=== PATIENT | male | born 1970 ===

== ENCOUNTER → 2023-08-05 13:29 | Outpatient (POV) | payer BC, SELFPAY ==
[2023-08-05 13:52] VITALS: BP 134/82; PULSE 70; RESP 20; O2SAT 99; BMI 29.7
--- NOTE | 2023-08-05 14:20 | EXP.PAIN.OV ---
HPI Data of Consult Patient: new to practice Consult date: 08/05/23 Requesting Physician: Tracie Holt APRN Consult Narrative Reason for consult: Low back pain, right hip pain History of present illness: Mr. Tony is a 52 year old male who presents today as a new patient. He is a referral from [facility]. Today he rates his pain a 5 out of 10. Patient states all of his issues are related to around his right hip and buttocks/upper leg. Patient states this has been going on since June 19 and related to any specific trauma or injury. He does describe this as a sharp knifelike sensation that does interfere with his ability to perform activities of daily living such as cooking and cleaning. He states it is almost like electrical shock sensations. He states the pain seems to be worse with certain positioning such as prolonged sitting, walking or standing. He states that riding in a vehicle significantly worsens his pain along with going up stairs. Patient has tried [id number] Tylenol and ibuprofen along with heat and ice and topicals such as IcyHot with no improvement. Patient has had physical therapy in the past with no change. Patient does state he does do an at home exercise regimen and stretching daily and has for the last 12 weeks with minimal improvement. Patient does also state he has a history of rotator cuff tear in his bilateral shoulders and did have right repair in the past. He does state that he is going to be scheduled for a left shoulder surgery in the future however that based off of his work routine he has to wait until most likely May. He does state that he is scheduled for a lumbar MRI coming up. Patient does have a history of previous back fusion related to scoliosis. He is currently managed with gabapentin 300 mg 3 times a day from an outside provider. Patient denies any side effects from this medication. His Parag has been reviewed and is appropriate. CC: Tracie Holt APRN [facility] Disclaimer: The information contained in this section may have been updated after the patient was seen, as this information can be updated by other users. Medical History (Updated 08/05/23 @ 14:26 by Tracie Holt APRN) Adult attention deficit disorder Depression Diverticulosis History of colon polyps Scoliosis Surgical History (Updated 08/05/23 @ 13:55 by Samaria Cantor RN) H/O repair of rotator cuff H/O spinal fusion Hx of tonsillectomy Family History (Updated 08/05/23 @ 13:55 by Samaria Cantor RN) Other No significant family history Social History (Updated 08/05/23 @ 13:55 by Samaria Cantor RN) Smoking Status: Never smoker alcohol intake: never current occupational status: other Travel in the last 8 weeks: None Review of Systems Review of Systems Review of systems:: pertinent systems reviewed and negative unless documented below Review of systems (narrative): Review of Systems: General: No recent weight changes, no fever, no sleep disturbances Respiratory: No cough, no shortness of air, no recurring pulmonary infections Cardiovascular/peripheral vascular: No chest pain, no palpitations, no edema, no shortness of breath Gastrointestinal: No new onset incontinence, normal bowel movements reported Genitourinary: No new onset incontinence Musculoskeletal: Low back pain, right hip pain/buttocks pain Psychiatric: [Normal mood/affect] Neurological: [Denies weakness in extremities], [denies balance issues] Meds Home Medications and Allergies Home Medications Medication Instructions Recorded Confirmed Type citalopram 40 mg tablet 40 mg PO DAILY 08/05/23 08/05/23 History diclofenac sodium 75 mg 75 mg PO BID 08/05/23 08/05/23 History tablet,delayed release gabapentin 300 mg capsule 300 mg PO TID 08/05/23 08/05/23 History New Prescriptions to Start Prescriptions: Allergies Allergy/AdvReac Type Severity Reaction Status Date / Time No Known Allergies Allergy Verified 08/05/23 14:01 Objective Vital signs: Pulse Resp BP Pulse Ox O2 Del Method 70 20 134/82 99 Room Air 08/05/23 13:52 08/05/23 13:52 08/05/23 13:52 08/05/23 13:52 08/05/23 13:52 Narrative: Physical Exam: General: Alert and oriented x3, no acute distress, pleasant and cooperative Lungs: Respirations even and unlabored, symmetrical chest expansion Eyes: PERRL Musculoskeletal: Flexion and extension of lumbar [spine] somewhat guarded secondary to pain, [antalgic gait noted] point tenderness along right SI with positive right Lion's, Barrera's, Gaenslen's, compression and distraction exam Neurological: Speech clear, no gross sensory deficit Additional findings Additional findings: Primary plus 06/25/2023 AP lateral lumbar Findings: Patient has had previous surgery with the spinal rods seen. Injected over T10-T12 with superior portion of the byron not included. Inferior border of the byron is projected to the right of midline with more superior byron on the left. Comparison to prior exam suggested to confirm appropriate desired stable location. There is levoscoliosis of approximately 20 degrees there is no acute fracture or subluxation. There are some moderate osteophyte formation throughout the lumbar spine with some mild to moderate disc space narrowing, more prominent on the right at L3-5. Moderate disc space narrowing L5-S1. Some facet osteoarthrosis L4-S1. Mild left-sided offset of L4 and L5. Assessment and Plan *Assessment and plan (1) Sacroiliitis: Status: Acute Category: Medical Code(s): M46.1 - Sacroiliitis, not elsewhere classified (2) Right hip pain: Status: Acute Category: Medical Code(s): M25.551 - Pain in right hip (3) Low back pain: Status: Acute Qualifiers: Chronicity: acute Back pain laterality: right Sciatica presence: with sciatica Sciatica laterality: sciatica of right side Qualified Code(s): M54.41 - Lumbago with sciatica, right side Category: Medical Code(s): M54.50 - Low back pain, unspecified Plan Patient is experiencing worsening pain in his right hip and right buttocks with limited range of motion of his lumbar spine. Patient did have point tenderness along his right SI with a positive right Lion's, Barrera's, Gaenslen's, compression and distraction exam. I have discussed with the patient that he may benefit from a right SI injection. Risk and benefits were discussed with the patient and he would like to proceed forward with this plan of care. I will also order the patient a compounded cream. Patient will be scheduled for a right SI injection under fluoroscopy. Patient has tried and failed conservative therapy such as oral medication, heat and ice, topicals, previous physical therapy, at home stretching exercise regimen for longer than 12 weeks. Patient has been instructed to contact the clinic with any concerns before the next appointment. Dr. Swann has reviewed this note and agrees with this plan of care. This note was dictated using voice recognition software and make contain errors or omissions.
== END ==
PROVIDERS: Visit Provider Nurse Practitioner Family
DX: M46.1 Sacroiliitis, not elsewhere classified (principal); M25.551 Pain in right hip; M54.41 Lumbago with sciatica, right side
CPT/HCPCS: 99202; G0463